=== PATIENT | male | born 1990 ===

== ENCOUNTER 2021-04-16 15:48 | Emergency (ER) | payer SELFPAY ==
[~2021-04-16] VITALS: Ht 172.7 cm; Wt 65.9 kg
[2021-04-16 15:52] VITALS: BP 118/80
--- NOTE | 2021-04-16 16:00 | NUR ---
BIB [facility], STATE PT WAS TRYING TO PUT A WHOLE IN A BELT WITH A KNIFE AND SLIPPED AND CUT HIMSELF IN THE RIGHT FOREARM.
--- NOTE | 2021-04-16 16:25 | NUR ---
PROVIDER INTO NUMB ARM.
[2021-04-16] MEDS ORDERED: LIDOCAINE-MPF 1%, 2ML ONE (16:27)
[2021-04-16] MEDS ORDERED: BUPIVACAINE 0.25% ONE (16:27)
[2021-04-16] MEDS ORDERED: DIPH,PERTUSS(ACELL),TET VAC/PF 0.5 ML IM-VACC ONE ×2 (16:28→16:30)
[2021-04-16] MEDS ORDERED: PLEASE ENTER ALLERGIES MC SCH (16:30)
[2021-04-16] MEDS ORDERED: BUPIVACAINE/PF-EPI 0.25% 1:200K SQ ONE (16:30)
[2021-04-16] MEDS ORDERED: LIDOCAINE-MPF 1%, 5ML INFIL ONE (16:30)
[2021-04-16] MEDS ORDERED: NEOSPORIN OINT. PKT 1 PACKET ONE ×2 (17:06→17:07)
== END 2021-04-17 02:43 | disposition home or self-care (01) ==
LOC: ED 17:00
DX: S51.811A Laceration without foreign body of right forearm, initial encounter (principal); X50.0XXA Overexertion from strenuous movement or load, initial encounter; Y93.89 Activity, other specified; Y92.59 Other trade areas as the place of occurrence of the external cause; Y99.8 Other external cause status
CPT/HCPCS: 12032; 90471; 90715; 99284